=== PATIENT | male | born 1995 | race Asian ===

== ENCOUNTER 2023-02-13 12:53 | Emergency (ER) | payer MEDICAID ==
[~2023-02-13] VITALS: Ht 182.9 cm; Wt 72.6 kg
[2023-02-13 13:29] VITALS: BP 116/70; PULSE 96; RESP 16; TEMP 97.8; O2SAT 99
[2023-02-13 13:57] LABS: BASOPHILS # (AUTO) 0.2 K/uL (0.00-0.22); BASOPHILS % (AUTO) 2.9 % (0.0-2.0); EOSINOPHILS # (AUTO) 0.5 K/uL (0-0.4); EOSINOPHILS % (AUTO) 6.2 % (0.0-4.0); HEMATOCRIT 48.5 % (36-52); HEMOGLOBIN 16.4 g/dL (12.0-18.0); LYMPHOCYTES # (AUTO) 1.3 K/uL (2.0-11.5); LYMPHOCYTES % (AUTO) 15.3 % (20.5-51.1); MEAN CORPUSCULAR HEMOGLOBIN 28 pg (27-31); MEAN CORPUSCULAR HGB CONC 34 g/dL (33-37); MEAN CORPUSCULAR VOLUME 83.1 fL (80-94); MONOCYTES # (AUTO) 0.5 K/uL (0.8-1.0); MONOCYTES % (AUTO) 5.8 % (1.7-9.3); NEUTROPHILS % (AUTO) 69.8 % (42.2-75.2); PLATELET COUNT (AUTO) 276 K/uL (140-450); RED BLOOD CELL COUNT(AUTO) 5.83 MIL/uL (4.20-6.10); WHITE BLOOD COUNT (AUTO) 8.6 K/uL (4.8-10.8)
[2023-02-13 14:11] LABS: ANION GAP 7.4 (8-16); CALCIUM 8.8 mg/dL (8.5-10.1); CARBON DIOXIDE 29.5 mmol/L (21-32); CREATININE 1.2 mg/dL (0.6-1.3); POTASSIUM 3.9 mmol/L (3.5-5.1); TOTAL BILIRUBIN 0.6 mg/dL (0.0-1.0); TOTAL PROTEIN, SERUM 7.6 g/dL (6.4-8.2)
[2023-02-13] MEDS ORDERED: NACL 0.9% 1,000 ML IV ONE (15:10)
[2023-02-13 18:37] VITALS: BP 116/70; PULSE 96; RESP 16; TEMP 97.8; O2SAT 99
== END 2023-02-13 18:31 | disposition home or self-care (01) ==
LOC: MED 12:53
DX: E86.0 Dehydration (principal); R53.1 Weakness; R51.9 Headache, unspecified; Z20.822 Contact with and (suspected) exposure to COVID-19
CPT/HCPCS: 36415; 80053; 85025; 96360; 99283; J7030